=== PATIENT | male | born 1980 | race Two or more races ===

== ENCOUNTER → 2022-02-16 14:12 | Outpatient (BNVA) | payer OTHER, SELFPAY | PROVIDERS: PCP Internal Medicine; Referring Provider Internal Medicine; Visit Provider Internal Medicine Rheumatology | DX: M79.672 Pain in left foot (principal); M10.9 Gout, unspecified; I12.9 Hypertensive chronic kidney disease with stage 1 through stage 4 chronic kidney disease, or unspecified chronic kidney disease; N18.30 Chronic kidney disease, stage 3 unspecified | CPT/HCPCS: 99202 ==

== ENCOUNTER → 2023-07-16 11:31 | Outpatient (BNVA) | payer OTHER, SELFPAY | PROVIDERS: PCP Internal Medicine; Visit Provider Physician Assistant | DX: S39.011A Strain of muscle, fascia and tendon of abdomen, initial encounter (principal); W03.XXXA Other fall on same level due to collision with another person, initial encounter | CPT/HCPCS: 72170; 99204 ==

== ENCOUNTER → 2023-07-19 11:06 | Outpatient (BNVA) | payer OTHER, SELFPAY | PROVIDERS: PCP Internal Medicine; Visit Provider Internal Medicine | DX: R10.31 Right lower quadrant pain (principal) | CPT/HCPCS: 99213 ==

== ENCOUNTER → 2023-07-23 10:26 | Outpatient (BNVA) | payer OTHER, SELFPAY | PROVIDERS: PCP Internal Medicine; Visit Provider Internal Medicine | DX: S39.011A Strain of muscle, fascia and tendon of abdomen, initial encounter (principal); W03.XXXA Other fall on same level due to collision with another person, initial encounter | CPT/HCPCS: 99213 ==